=== PATIENT | female | born 1995 | race Caucasian/White ===

== ENCOUNTER 2021-05-12 04:55 | Inpatient (IN) | payer BC, SELFPAY ==
[2021-05-12] VITALS (98 sets, daily range): BP systolic 90–147; BP diastolic 35–88; PULSE 71–152; RESP 12–18; TEMP 36.2–37.2; O2SAT 97–100; BMI 33.4
--- NOTE | 2021-05-12 04:55 | LDADM ---
This patient, Nat Morataya, was admitted to Labor/Delivery/Recovery 104 on 05/12/21 at 04:55. Plans for labor, pain management and were discussed with patient. Patient/family oriented to hospital policies and general routines including ID bracelet, bed and alarms, visiting hours, pain management, procedures, bathroom and other care routines, personal items, smoking policy, room service/diet and guest tray routines, security routines, and visiting hours. Patient/Family are encouraged to report perceived risks to care and to ask questions if they do not understand what they are told or what they should do. See OBIX for further documentation.
[2021-05-12] MEDS: LACTATED RINGERS 1,000 ML 125 ML IV CONT ×2 (05:35→07:51)
[2021-05-12 05:51] LABS: Basophils Percent Auto 0.4 % (0.2-1.2); Eosinophils Absolute Auto 0.1 K/mm3 (0-0.3); Eosinophils Percent Auto 0.8 % (0-4.4); Hemoglobin 12.6 g/dL (12.0-15.0); Immature Granulocyte Absolute 0.05 K/mm3 (0.00-0.031); Immature Granulocyte Percent A 0.5 % (0-0.5); Lymphocytes Absolute Auto 2.21 K/mm3 (0.9-3.2); Lymphocytes Percent Auto 23.8 % (18.3-44.2); Mean Corpuscular HGB Conc 34.1 g/dl (32-36); Mean Corpuscular Volume 88.1 fl (80-100); Mean Platelet Volume 9.9 fl (7.4-10.4); Monocytes Absolute Auto 0.5 K/mm3 (0.1-0.6); Monocytes Percent Auto 5.4 % (2.6-8.5); Neutrophils Absolute Auto 6.4 K/mm3 (1.3-6.7); Neutrophils Percent Auto 69.1 % (45.5-73.1); Platelet Count Result 219 k/mm3 (150-375); Red Cell Distribution Width 13.2 % (11.5-14.5); White Blood Count 9.3 K/mm3 (4.5-10.0)
[2021-05-12] MEDS: OXYTOCIN 30 UNITS/NS 500 ML 30 UNITS/500 ML BAG IV CONT (06:28)
--- NOTE | 2021-05-12 07:07 | P.PNAN_ITS ---
Anes - Eval Pre Procedure Procedure: labor epidural Date/Time: 05/12/21 07:07 Surgeon: Dr Collazo Preop Diagnosis: Labor Pain Pre Op Diagnosis: IOL Patient Data Age: 25 Gender: F Height: 1.68 m Weight: 94 kg Last Vital Signs Temp 36.6 C 05/12/21 05:25 Pulse 82 05/12/21 07:00 Resp 18 05/12/21 05:25 BP 127/78 05/12/21 07:00 Allergies Allergy/AdvReac Type Severity Reaction Status Date / Time No Known Allergies Allergy Verified 05/04/21 12:33 Home Medications Medication Instructions Recorded Confirmed Type ferrous sulfate 65 mg BYMOUTH DAILY 05/04/21 05/12/21 History prenat.vits,keven,rby-krqv-xkfos 1 tablet PO DAILY 05/04/21 05/04/21 History [ #2] Laboratory Tests 05/12/21 05/12/21 05/12/21 05:27 05:27 05:27 WBC 9.3 K/mm3 K/mm3 (4.5-10.0) RBC 4.20 M/mm3 M/mm3 (4.2-5.4) Hgb 12.6 g/dL g/dL (12.0-15.0) Hct 37.0 % % (37.0-47.0) MCV 88.1 fl fl (80-100) MCH 30.0 pg pg (26-34) MCHC 34.1 g/dl g/dl (32-36) RDW 13.2 % % (11.5-14.5) Plt Count 219 k/mm3 k/mm3 (150-375) MPV 9.9 fl fl (7.4-10.4) Immature Gran % (Auto) 0.5 % % (0-0.5) Neut % (Auto) 69.1 % % (45.5-73.1) Lymph % (Auto) 23.8 % % (18.3-44.2) [place] % (Auto) 5.4 % % (2.6-8.5) Eos % (Auto) 0.8 % % (0-4.4) Baso % (Auto) 0.4 % % (0.2-1.2) Lymph # (Auto) 2.21 K/mm3 K/mm3 (0.9-3.2) [place] # (Auto) 0.5 K/mm3 K/mm3 (0.1-0.6) Eos # (Auto) 0.1 K/mm3 K/mm3 (0-0.3) Baso # (Auto) 0.0 K/mm3 K/mm3 (0.0-0.1) Abs Immat Gran (auto) 0.05 K/mm3 H K/mm3 (0.00-0.031) Absolute Neuts (auto) 6.4 K/mm3 K/mm3 (1.3-6.7) Absolute Nucleated RBC 0.0 K/mm3 K/mm3 (0.0-0.012) Nucleated RBC % 0.0 % % (0.0-0.2) RPR Pending Blood Type AB Positive Antibody Screen Negative : gestational age (, KAREN 05/19/21) Patient hx anesthesia problems: none Family hx anesthesia problems: none Results Review: All pre-operative results and documents have been reviewed as part of the pre-operative evaluation. [facility] Family History Family History Other Adopted Social History Social History Smoking status: Never smoker Substance use: never Spiritual care concerns: No Exam Day of Procedure 05/12/21 07:07 Patient weight: normal Heart: regular rate and rhythm Lungs: normal air movement Airway: Mallampati scale class II Neurological: alert and oriented
--- NOTE | 2021-05-12 07:51 | PM.IMHP ---
H&P: HPI History of Present Illness Date/Time: 05/12/21 07:51 Chief Complaint: induction of labor Narrative: Nat is a 25yo at 39.0 for elective IOL for history of fast labors. uncomplicated. Review of Systems Review of Systems: All systems reviewed & are unremarkable except as noted in HPI and below PMFSH Family History Family History Other Adopted Social History Social History Smoking status: Never smoker Substance use: never Spiritual care concerns: No Meds Home Medications and Allergies Home Medications Medication Instructions Recorded Confirmed Type ferrous sulfate 65 mg BYMOUTH DAILY 05/04/21 05/12/21 History prenat.vits,keven,hse-btoj-yxqbx 1 tablet PO DAILY 05/04/21 05/04/21 History [ #2] Allergies Allergy/AdvReac Type Severity Reaction Status Date / Time No Known Allergies Allergy Verified 05/04/21 12:33 Vital Signs Vital Signs - 24 hr 05/12/21 05:25 05/12/21 05:32 05/12/21 05:45 Temperature 98 F Pulse Rate 93 82 Respiratory Rate 18 Blood Pressure 138/79 116/71 Pulse Oximetry 05/12/21 06:00 05/12/21 06:15 05/12/21 06:30 Temperature Pulse Rate 89 87 89 Respiratory Rate Blood Pressure 116/73 123/77 127/76 Pulse Oximetry 05/12/21 07:00 05/12/21 07:28 05/12/21 07:29 Temperature Pulse Rate 82 100 Respiratory Rate Blood Pressure 127/78 147/83 H Pulse Oximetry 100 05/12/21 07:33 05/12/21 07:35 05/12/21 07:36 Temperature Pulse Rate 90 94 93 Respiratory Rate Blood Pressure 123/69 125/81 123/78 Pulse Oximetry 100 05/12/21 07:38 05/12/21 07:40 05/12/21 07:43 Temperature Pulse Rate 86 82 85 Respiratory Rate Blood Pressure 129/67 112/63 127/75 Pulse Oximetry 100 100 05/12/21 07:45 05/12/21 07:47 05/12/21 07:48 Temperature Pulse Rate 94 80 Respiratory Rate Blood Pressure 96/75 L 116/85 Pulse Oximetry 100 05/12/21 07:50 Temperature Pulse Rate Respiratory Rate Blood Pressure 122/68 Pulse Oximetry Exam Const: General: no acute distress Resp: Effort & Inspection: normal respiratory effort Auscultation: clear to auscultation bilaterally Cardio: Rate: regular rate Rhythm: regular rhythm GI: GI Palp: Yes Soft to palpation : Other: SVE 4/60/-3 AROM clear Extrem: General: normal to inspection H&P: Results Labs Labs: Short CBC 05/12/21 Range/Units 05:27 WBC 9.3 (4.5-10.0) K/mm3 Hgb 12.6 (12.0-15.0) g/dL Hct 37.0 (37.0-47.0) % Plt Count 219 (150-375) k/mm3 Assessment and Plan Additional Plan Here for induction of labor- elective history of fast labors GBS neg pitocin per protocol FHT category 1
[2021-05-12 10:52] LABS: Rapid Plasma Reagin Non-Reactive (NonReactive)
--- NOTE | 2021-05-12 11:50 | P.PCNOB_ITS ---
OB - Delivery Note Procedure Delivery date: 05/12/21 Procedure: Induction method: AROM and per pitocin protocol Delivery monitor: external FHT and external uterine Route of delivery: Episiotomy description: None Laceration Description: None Quantitative Blood Loss (ml): 300 Anesthesia type: Epidural Disposition: floor Narrative: With adequate expulsive efforts by the mother, the baby's head was delivered OA. The baby's anterior shoulder was delivered under the pubic symphysis without difficulty. The posterior shoulder and the rest of the baby delivered without difficulty. The was placed on the mothers chest and suctioned and stimulated. The cord was clamped and cut after 30 seconds. Mother and baby both stable. [place] Baby Date of : 05/12/21 Time of : 11:38 Weeks of gestation at delivery: 39 Infant gender: Male Weight (pounds): 7 Weight (ounces): 12 presentation: vertex Placenta delivery description: Spontaneous cord vessel description: 3 Vessels, Nuchal Cord and Delayed Cord Clamping score one minute: 8 score five minutes: 9
[2021-05-12] MEDS: OXYTOCIN 30 UNITS/NS 500 ML 30 UNITS/500 ML BAG 125 UNITS IV CONT (12:15)
[2021-05-12] MEDS: WITCH HAZEL 40 PADS 1 PAD TOPICAL (13:56)
--- NOTE | 2021-05-12 14:47 | OBPPTRN ---
1413 Patient transferred to post room #283 via W/C. Support person present. Oriented to unit, room, information board, rooming in, admission packet and security measures. Patient verbalizes understanding.
[2021-05-13] MEDS: IBUPROFEN 600 MG TABLET PO ×2 (03:01→12:30)
[2021-05-13 04:00] VITALS: BP 121/74; PULSE 66; RESP 18; TEMP 36; O2SAT 100
[2021-05-13 05:06] LABS: Hematocrit 29.4 % (37.0-47.0); Hemoglobin 9.8 g/dL (12.0-15.0)
[2021-05-13] MEDS: MULTIVIT/MIN/PREN/FOL AC/IRON TABLET 1 TAB PO (07:52)
[2021-05-13 07:53] VITALS: BP 118/81; PULSE 78; RESP 16; TEMP 36.7; O2SAT 100
[2021-05-13] MEDS: POLYSACCHARIDE IRON COMPLEX 150 MG CAPSULE PO (07:53)
--- NOTE | 2021-05-13 08:15 | PC.NURSE ---
Consult with pt., at breast upon entering. Mother reports slight tenderness at times. Mother will latch with cross cradle and switches to cradle. Reviewed positioning/alignment in cross cradle, holding breast in ?U? hold and guided asymmetrical latch on. Reviewed rational for each. Infant nursed eagerly with steady draws and occasional/frequent swallowing noted, some pausing noted. Reviewed signs of a correct latch, effective nursing and suck swallow ratio. Suggested mother stimulate while feeding to increase stimulate, increase intake and to assist with maintaining deep latch. would slip to shallow latch causing tenderness. Demonstrated how to adjust latch more deeply while feeding if needed. Mother reports she can feel the difference in latch with no tenderness. Advised to hold breast for entire feeding for the next few days. Nipple care reviewed of lanolin after feedings, warm compresses as needed, gel pads provided and reviewed care and cleaning. Mother is feeding as required and waking to feed if needed. Infant is currently meeting outcomes for weight, output, jaundice and feeding frequencies. Mother states she feels confident to continue effective at home, this is 4th child to breastfeed. Reviewed transition to breast milk, signs of adequate intake, and engorgement/relief. Instructed to call ICP if intake/output less than required. Reviewed regular medications mother is taking. Information provided per Manuela. Reviewed community resources on the [employer] website and in the Mom/Baby guide. Information on outpatient services provided. Mother has no further questions at this time. Instructed feeding should be initiated three hours from start of last feeding or if feeding cues are noted before until seen by ICP. Mother voiced understanding of information shared.
--- NOTE | 2021-05-13 08:26 | P.PNOB_ITS ---
OB - PN: Subj Subjective Date/time seen: 05/13/21 08:26 Interval history: NO concerns, EAV, normal lochia, just some cramping, wants DC home today. [place] feeding status: exclusively breast feeding OB - PN: Obj Data Labs CBC & Chem 7: 05/13/21 02:58 Labs: Laboratory Results - last 24 hr 05/12/21 05/13/21 05:27 02:58 Hgb 9.8 L Hct 29.4 L RPR Non-reactive OB - PN A/P Plan day: 1 Plan: routine care and discharge home Comments: DC instructions given Time Spent With Patient Time: Total time spent is greater than 50% in coordination of care (as documented) at patient's floor/unit and/or counseling patient: Time with patient: less than 15 minutes Exam Narrative: NAD abdomen soft, nontender, fundus firm below the umbilicus Extremities nontender, 1+ edema
--- NOTE | 2021-05-13 08:30 | PM.OBDSVD ---
DS: Admitting Diagnosis Discharge Date 05/13/21 Admitting Diagnosis term IUP DS: Discharge Diagnosis Discharge Diagnosis (1) , delivered: Code(s): O80 - Encounter for full-term uncomplicated delivery Status: Acute OB - DS: Summary Hospital Course Hospital Course: Pt had an uncomplicated vaginal delivery and course. OB Procedures : Ultrasound OB Procedures Intrapartum: Spontaneous Vag Delivery OB Procedures: : None Peripartum Data Infant Delivery Method: Natural Vaginal Laceration Description: None complications: none Status at Discharge Functional status at discharge: independent ambulation Time Spent with Patient Time attestation: Total time spent providing and/or coordinating discharge services: Exam Narrative: NAD abdomen soft, appropriately tender Ext non tender, 1+ edema DS: Data Data Completed and Pending Labs on day of discharge: Labs from last 24 hours 05/13/21 05/12/21 02:58 05:27 Hgb 9.8 L Hct 29.4 L RPR Non-reactive Discharge Plan Discharge Attending physician on discharge: Alona Collazo Discharging Clinician: Alona Collazo Anticipated Discharge Date/Time: 05/13/21 15:00 Patient Disposition: Home, Self-Care Activity: pelvic rest Diet: as tolerated Patient Instructions: Antibiotic Form Stand Alone Forms: General Discharge Information Follow-up/Referrals: Alona Collazo MD [Physician] - 4 Weeks Discharge Medications: Continued #2 Tablet 1 tablet PO DAILY RF: 0 Discontinued ferrous sulfate 65 mg BYMOUTH DAILY RF: 0 Date of admission: 05/12/21 04:55 Primary Care Provider: PHYSICIAN,BIOMEDICAL ENGINEERING TECHNOLOGIST Admitting Provider: Alona Collazo Attending physician on admission: Alona Collazo Condition: Stable
--- NOTE | 2021-05-13 09:26 | WPDANLDPN2 ---
Anes-Prog Note L&D Date/Time: 05/13/21 09:26 Comfortable throughout: labor and delivery Neuraxial method: epidural Epidural/Spinal procedure site: tender Neuro status: Neuro function grossly intact. Cardiovascular status: normal Respiratory status: normal Airway patency: baseline Mental status: baseline Post-Op hydration status: normal Vital Signs: Last Vital Signs Temp 98.1 F 05/13/21 07:53 Pulse 78 05/13/21 07:53 Resp 16 05/13/21 07:53 BP 118/81 05/13/21 07:53 Pulse Ox 100 05/13/21 07:53 Pain score (VAS): 0 Post-procedural complaints: none Patient feedback: Patient satisfied with anesthetic care.
[2021-05-14 09:17] VITALS: BP 134/76; PULSE 87; RESP 20; TEMP 37.1; O2SAT 100
== END 2021-05-13 15:22 | disposition home or self-care (01) | DRG 807 ==
LOC: ANHLDR 04:59 → ANHOB2 14:14
PROVIDERS: Admitting Provider Obstetrics & Gynecology; Visit Provider Obstetrics & Gynecology
DX: O76 Abnormality in fetal heart rate and rhythm complicating labor and delivery (principal); Z37.0 Single live birth; O69.81X0 Labor and delivery complicated by cord around neck, without compression, not applicable or unspecified; Z3A.39 39 weeks gestation of pregnancy; Z23 Encounter for immunization
CPT/HCPCS: 36415; 85014; 85018; 85025; 86592; 86850; 86900; 86901; 90471; 90653; A9270; G0008; J2590; J2795; J7120

== ENCOUNTER 2023-01-07 22:56 | Inpatient (IN) | payer OTHER, SELFPAY ==
[2023-01-08] VITALS (74 sets, daily range): BP systolic 100–147; BP diastolic 33–116; PULSE 55–128; RESP 18; TEMP 36.3–37.3; O2SAT 97–100
[2023-01-08] MEDS: LACTATED RINGERS 1,000 ML 125 ML IV CONT (02:30)
[2023-01-08 02:55] LABS: Basophils Percent Auto 0.4 % (0.2-1.2); Eosinophils Percent Auto 0.2 % (0-4.4); Hematocrit 35.4 % (37.0-47.0); Hemoglobin 11.9 g/dL (12.0-15.0); Immature Granulocyte Absolute 0.04 K/mm3 (0.00-0.031); Immature Granulocyte Percent A 0.4 % (0-0.5); Lymphocytes Percent Auto 23.5 % (18.3-44.2); Mean Corpuscular HGB Conc 33.6 g/dl (32-36); Mean Corpuscular Hemoglobin 28.7 pg (26-34); Mean Corpuscular Volume 85.5 fl (80-100); Mean Platelet Volume 10.5 fl (7.4-10.4); Monocytes Absolute Auto 0.6 K/mm3 (0.1-0.6); Monocytes Percent Auto 5.7 % (2.6-8.5); Neutrophils Absolute Auto 7.1 K/mm3 (1.3-6.7); Neutrophils Percent Auto 69.8 % (45.5-73.1); Platelet Count Result 198 k/mm3 (150-375); Red Blood Count 4.14 M/mm3 (4.2-5.4); Red Cell Distribution Width 14.3 % (11.5-14.5); White Blood Count 10.2 K/mm3 (4.5-10.0)
--- NOTE | 2023-01-08 03:22 | WPDANESEPN ---
Anes - Epidural Procedure Note Date/Time: 01/08/23 03:22 Consent: I have discussed with the patient/family/POA, the placement of an epidural catheter and the use of epidural narcotic/local anesthetic for labor analgesia and/or postoperative pain management, including associated potential risks, benefits, complications and side effects. I have discussed alternative methods of labor analgesia and/or postoperative pain management. The patient/family/POA, understand(s) and wish(es) to proceed with epidural narcotic/local anesthetic for labor analgesia and/or postoperative pain management. Time-Out: A pre-procedural Time-Out was completed immediately before starting the procedure and confirmed: Patient Identification, Site, Procedure, Patient Position and the Availability of Requisite Equipment. Clinical Indications: Labor pain Epidural Insertion Note Patient position: sitting Skin prep: chlorhexidine and sterile drape Needle: 18g Tuohy-Schliff Catheter: 20g Unstyleted Technique: Loss of resistance. Level of insertion: L4/5 Catheter skin camille (cm): 9 Length in epidural space (cm): 4 Skin anesthesia: lidocaine 1% Test dose: 1.5% Lidocaine with [id number] Epi, negative for subarachnoid Inj and negative for intravascular Inj Time of test dose: 03:13 Observations: tolerated well Complications: none
--- NOTE | 2023-01-08 03:23 | P.PNAN_ITS ---
Anes - Initial Pre Proc Eval Procedure: Labor epidural Date/Time: 01/08/23 03:05 Surgeon: Alona Collazo MD Pre Op Diagnosis: Labor pain Pre Op Diagnosis: labor Patient Data Age: 27 Gender: F Height: Weight: Last Vital Signs Pulse 88 01/08/23 03:21 BP 119/53 L 01/08/23 03:21 Pulse Ox 97 01/08/23 03:19 Allergies Allergy/AdvReac Type Severity Reaction Status Date / Time No Known Allergies Allergy Verified 05/04/21 12:33 Home Medications Medication Instructions Recorded Confirmed Type prenat.vits,keven,smu-vmpc-botco 1 tablet PO DAILY 05/04/21 05/04/21 History Laboratory Tests 01/08/23 02:50 WBC 10.2 H K/mm3 (4.5-10.0) RBC 4.14 L M/mm3 (4.2-5.4) Hgb 11.9 L g/dL (12.0-15.0) Hct 35.4 L % (37.0-47.0) MCV 85.5 fl (80-100) MCH 28.7 pg (26-34) MCHC 33.6 g/dl (32-36) RDW 14.3 % (11.5-14.5) Plt Count 198 k/mm3 (150-375) MPV 10.5 H fl (7.4-10.4) Immature Gran % (Auto) 0.4 % (0-0.5) Neut % (Auto) 69.8 % (45.5-73.1) Lymph % (Auto) 23.5 % (18.3-44.2) [place] % (Auto) 5.7 % (2.6-8.5) Eos % (Auto) 0.2 % (0-4.4) Baso % (Auto) 0.4 % (0.2-1.2) Lymph # (Auto) 2.40 K/mm3 (0.9-3.2) [place] # (Auto) 0.6 K/mm3 (0.1-0.6) Eos # (Auto) 0.0 K/mm3 (0-0.3) Baso # (Auto) 0.0 K/mm3 (0.0-0.1) Abs Immat Gran (auto) 0.04 H K/mm3 (0.00-0.031) Absolute Neuts (auto) 7.1 H K/mm3 (1.3-6.7) Absolute Nucleated RBC 0.0 K/mm3 (0.0-0.012) Nucleated RBC % 0.0 % (0.0-0.2) RPR Pending Patient hx anesthesia problems: none Family hx anesthesia problems: none Results Review: All pre-operative results and documents have been reviewed as part of the pre- operative evaluation. [facility] Family History Family History Other Adopted Social History Social History Smoking status: Never smoker Substance use: never Spiritual care concerns: No Anes - Eval Final PreProcedure Day of Procedure 01/08/23 03:23 Patient weight: normal Heart: regular rate and rhythm Airway: Mallampati scale class II ASA classification: II Emergent: no Anesthetic plan: proceed Anesthesia type and monitoring: regional epidural and standard monitoring Results Review: All pre-operative results and documents have been reviewed as part of the pre- operative evaluation. Informed Consent: The patient's anesthetic plan and its attendant risks and benefits were discussed with the patient/family/POA. Questions were solicited and answers provided to the satisfaction of the patient/family/POA.
--- NOTE | 2023-01-08 05:26 | P.PCNOB_ITS ---
OB - Delivery Note Procedure Delivery date: 01/08/23 Procedure: Induction method: None Delivery monitor: External FHT and External Uterine Route of delivery: Laceration Description: None Specimen: No Quantitative Blood Loss (ml): 98 Anesthesia type: Epidural Disposition: Floor [place] Baby Date of : 01/08/23 Time of : 05:13 Weeks of gestation at delivery: 37 Infant gender: Male presentation: vertex position: Left Occiput Anterior Placenta delivery description: Spontaneous Cord Vessel Description: 3 Vessels, Clamped/Cut and Delayed Cord Clamping score one minute: 8 score five minutes: 9 Narrative: mother and baby skin to skin in stable condition
--- NOTE | 2023-01-08 05:28 | WPDOBADMIT ---
Obstetrics - Admit Note Admission Note: record reviewed. No pertinent additions to the history and/or any subsequent changes in the physical findings that are not consistent with the expected course of the were found. active labor Additions to the history and/or subsequent changes in the physical findings follow. None.
[2023-01-08] MEDS: OXYTOCIN 30 UNITS/NS 500 ML 30 UNITS/500 ML BAG 999 UNITS IV CONT (05:30)
[2023-01-08] MEDS: OXYTOCIN 30 UNITS/NS 500 ML 30 UNITS/500 ML BAG 125 UNITS IV CONT (06:15)
[2023-01-08] MEDS: WITCH HAZEL 40 PADS 1 PAD TOPICAL (08:22)
[2023-01-08] MEDS: BENZOCAINE 20% AER SPR (*SP) 56 GM CAN 1 SPRAY TOPICAL (08:22)
--- NOTE | 2023-01-08 09:03 | OBPPTRN ---
Patient transferred to post room # 285 via wheelchair. Support person present. Oriented to unit, room, information board, rooming in, admission packet and security measures. Patient verbalizes understanding.
[2023-01-08] MEDS: IBUPROFEN 600 MG TABLET PO (21:49)
[2023-01-09 04:50] VITALS: BP 120/60; PULSE 73; RESP 20; TEMP 35.8; O2SAT 100
[2023-01-09 05:07] LABS: Hematocrit 34.8 % (37.0-47.0); Hemoglobin 11.3 g/dL (12.0-15.0)
[2023-01-09 08:00] VITALS: BP 115/70; PULSE 75; RESP 18; TEMP 36.6
--- NOTE | 2023-01-09 08:02 | WPDANLDPN2 ---
Anes-Prog Note L&D Date/Time: 01/09/23 08:02 Comfortable throughout: labor and delivery Neuraxial method: epidural Epidural/Spinal procedure site: tender Neuro status: Neuro function grossly intact. Cardiovascular status: normal Respiratory status: normal Airway patency: baseline Mental status: baseline Post-Op hydration status: normal Vital Signs: Last Vital Signs Temp 96.4 F L 01/09/23 04:50 Pulse 73 01/09/23 04:50 Resp 20 01/09/23 04:50 BP 120/60 01/09/23 04:50 Pulse Ox 100 01/09/23 04:50 O2 Del Method Room Air 01/08/23 13:00 Pain score (VAS): 0 I/O: Intake & Output 01/08/23 01/09/23 01/09/23 23:59 07:59 15:59 Intake Total 500 Balance 500 Post-procedural complaints: none Patient feedback: Patient satisfied with anesthetic care.
--- NOTE | 2023-01-09 08:13 | PM.OBPNVD ---
OB - PN: Subj Subjective Date/time seen: 01/09/23 08:13 s/p vaginal delivery day 1 doing well would like discharge home baby doing well OB - PN: Obj Data Labs 01/09/23 05:00 Labs: Laboratory Results - last 24 hr 01/09/23 05:00 Hgb 11.3 L Hct 34.8 L OB - PN A/P Plan day: 1 Plan: routine care and discharge home Time Spent With Patient Time: Total time spent is greater than 50% in coordination of care (as documented) at patient's floor/unit and/or counseling patient: Review of Systems Review of Systems: All systems reviewed & are unremarkable except as noted in HPI and below Exam Const: General: cooperative, healthy appearing and comfortable Chest: Chest palpation & inspection: normal inspection of the chest Resp: Effort & Inspection: normal respiratory effort Cardio: Rate: regular rate Rhythm: regular rhythm GI: Other: soft : Other: deferred Skin: General skin exam: normal color Extrem: Right lower extremity: normal to inspection Left lower extremity: normal to inspection Psych: Appearance: grossly normal and well kempt
--- NOTE | 2023-01-09 08:15 | PM.OBDSVD ---
DS: Admitting Diagnosis Discharge Date 01/09/23 Admitting Diagnosis labor DS: Discharge Diagnosis Discharge Diagnosis (1) Vaginal delivery: Code(s): O80 - Encounter for full-term uncomplicated delivery Status: Acute OB - DS: Summary OB Procedures : None OB Procedures Intrapartum: Spontaneous Vag Delivery OB Procedures: : None Time Spent with Patient Time attestation: Total time spent providing and/or coordinating discharge services: DS: Data Data Completed and Pending Labs on day of discharge: Labs from last 24 hours 01/09/23 05:00 Hgb 11.3 L Hct 34.8 L Discharge Plan Discharge Attending physician on discharge: Kasi Marino Discharging Clinician: Coby Stein Patient Disposition: Home, Self-Care Activity: pelvic rest Diet: regular Patient Instructions: Antibiotic Form Stand Alone Forms: General Discharge Information Follow-up/Referrals: Coby Stien CNM [Certified Nurse Associate Project Manager] - 4 Weeks Discharge Medications: New ibuprofen 600 mg Tablet 600 mg PO Q6H PRN (Reason: Cramping) Qty: 30 0RF Continued prenat.vits,keven,mtd-ghek-qakou Tablet 1 tablet PO DAILY Date of admission: 01/07/23 22:56 Primary Care Provider: PHYSICIAN,MARBLE CUTTER OPERATOR Admitting Provider: Alona Collazo Attending physician on admission: Alona Collazo Condition: Stable
[2023-01-09] MEDS: MULTIVIT/MIN/PREN/FOL AC/IRON TABLET 1 TAB PO (12:10)
[2023-01-09] MEDS: LANOLIN (LANSINOH) 7.5 GM CREAM 1 APPLIC TOPICAL (12:10)
[2023-01-10 08:05] LABS: Rapid Plasma Reagin Non-Reactive (NonReactive)
[2023-01-11 11:14] VITALS: BP 128/64; PULSE 80; RESP 20; TEMP 36.5; O2SAT 100
== END 2023-01-09 12:50 | disposition home or self-care (01) | DRG 807 ==
LOC: ANHLDR 01-08 02:33 → ANHOB2 01-08 09:05
PROVIDERS: Advanced Practice Midwife; Admitting Provider Obstetrics & Gynecology; Visit Provider Obstetrics & Gynecology
DX: O62.3 Precipitate labor (principal); Z37.0 Single live birth; Z3A.37 37 weeks gestation of pregnancy
CPT/HCPCS: 36415; 85014; 85018; 85025; 86592; 86850; 86900; 86901; A9270; J2590; J2795; J7120